=== PATIENT | male | born 1935 | race Caucasian/White ===

== ENCOUNTER 2016-11-28 09:59 | Day surgery (SDC) | payer BC ==
--- NOTE | ~2016-11-28 | EGD ---
EGD REPORT [facility] [place] [address] [id number] NAME: DIOGO OJEDA : [birth year] STATUS : REG [facility]#: [id number] AGE: 81 ADM/REG DATE : 11/28/16 MR#: [id number] REPORT SERV DATE: 11/28/16 DICTATED BY: KARLY MAN DATE: 11/28/16 REPORT STATUS : Draft TRANSCRIBED BY: [facility] DATE: 11/28/16 Endoscopy Center Patient Name: Diogo Ojeda Date of : 1935 Attending MD: KARLY MAN MD Procedure Date No Time: 11/28/2016 Procedure: Colonoscopy Indications: High risk colon cancer surveillance: Personal history of colonic polyps, Last colonoscopy: March 2013 Referring MD: SHAHRAM DAILEY MD Medicines: See the Anesthesia note for documentation of the administered medications Complications: No immediate complications. Procedure: Pre-Anesthesia Assessment: - ASA Grade Assessment: IV - A patient with severe systemic disease that is a constant threat to life. After I obtained informed consent, the scope was passed under direct vision. Throughout the procedure, the patient's blood pressure, pulse, and oxygen saturations were monitored continuously. The CF [id number] was introduced through the anus and advanced to the cecum, identified by appendiceal orifice and ileocecal valve. The colonoscopy was performed without difficulty. The patient tolerated the procedure well. The quality of the bowel preparation was adequate. Findings: The perianal and digital rectal examinations were normal. Diverticula were found in the sigmoid colon. Internal hemorrhoids were found during retroflexion and were large. A sessile polyp was found in the ascending colon. The polyp was small in size. The polyp was removed with a cold biopsy forceps. Resection and retrieval were complete. Impression: - Diverticulosis in the sigmoid colon. - Internal hemorrhoids. - One small polyp in the ascending colon. Resected and retrieved. Recommendation: - Patient has a contact number available for emergencies. The signs and symptoms of potential delayed complications were discussed with the patient. Return to normal activities tomorrow. Written discharge instructions were provided to the patient. - Regular diet. EGD REPORT [address] [address] NAME: DIOGO OJEDA : [birth year] STATUS : REG [facility] [place] PAT#: [id number] AGE: 81 ADM/REG DATE : 11/28/16 MR#: [id number] REPORT SERV DATE: 11/28/16 DICTATED BY: KARLY MAN DATE: 11/28/16 REPORT STATUS : Draft TRANSCRIBED BY: [employer] DATE: 11/28/16 - Continue present medications. - Repeat colonoscopy is not recommended for surveillance. - FOR YOUR BIOPSY RESULTS: Please go to [email or web address] and register to receive your results via the portal. Your biopsy results will be posted there in about 7 to 10 days. IF you do not see result in 10 days, call office. Procedure Code(s): --- Professional --- 84823, Colonoscopy, flexible, proximal to splenic flexure; with biopsy, single or multiple Diagnosis Code(s): --- Professional --- K64.8, Other hemorrhoids K57.30, Diverticulosis of large intestine without perforation or abscess without bleeding D12.2, Benign neoplasm of ascending colon Z86.010, Personal history of colonic polyps CPT copyright 2013 [employer]. All rights reserved. The codes documented in this report are preliminary and upon outpatient coder review may be revised to meet current compliance requirements. Karly Man MD KARLY MAN MD 11/28/2016 12:00 PM This report has been signed electronically. Number of Addenda: 0 Note Initiated On: 11/28/2016 11:41 AM Scope Withdrawal Time 0 hours 7 minutes 8 seconds [id number] [place] [id number]
[~2016-11-28 09:59] MED LIST: ALEVE220 MG PO; AMB10 PO; ASAB PO; ASPIRIN 81 MG B8113 PO; BETA240 PO; BETAPACE160 MG PO; CALCIUM/MAGNESIUM PO; CENTRUM SILVER1 EACH PO; CENTRUM TAB1 TAB PO; CO Q-10200 MG PO; COREG12 PO; DIOVAN HCT PO; DIOVAN320 MG PO; FISH OIL 1,0001 EAC4 PO; FISH-EPA1000 MG PO; FLOMAX4 PO; GLUCCHONDR PO; HYZAAR 50/12.51 TAB PO; HYZAAR1 TAB PO; LOP25 PO; MAGNEBIND200 MG PO; PACERONE200 MG PO; PRAVAC PO; PRILOSEC OTC20 MG PO; PROSCAR 5 MG PO; PROSCAR5 PO; STOOL SOFTEN100 MG PO; VITAMIN D1000 UNI1 PO; VITAMIN D31000 UNIT PO; ZETIA PO; ZOCOR10 PO; ZOCOR20 PO
== END 2016-11-28 23:59 | disposition home or self-care (01) ==
LOC: DMU 09:59
PROVIDERS: Internal Medicine Gastroenterology
PROC: 0DBK8ZZ Excision of Ascending Colon, Via Natural or Artificial Opening Endoscopic (ICD-10-PCS; principal; 2016-11-28 11:30)
DX: Z12.11 Encounter for screening for malignant neoplasm of colon (principal); D12.2 Benign neoplasm of ascending colon; K64.8 Other hemorrhoids; K57.30 Diverticulosis of large intestine without perforation or abscess without bleeding; Z86.010 Personal history of colon polyps; Z95.810 Presence of automatic (implantable) cardiac defibrillator; Z95.1 Presence of aortocoronary bypass graft; I10 Essential (primary) hypertension; M19.90 Unspecified osteoarthritis, unspecified site; K40.90 Unilateral inguinal hernia, without obstruction or gangrene, not specified as recurrent; E78.00 Pure hypercholesterolemia, unspecified; K42.9 Umbilical hernia without obstruction or gangrene; Z87.891 Personal history of nicotine dependence; Z98.42 Cataract extraction status, left eye; Z96.1 Presence of intraocular lens; Z96.643 Presence of artificial hip joint, bilateral; Z96.653 Presence of artificial knee joint, bilateral; Z90.89 Acquired absence of other organs; Z98.890 Other specified postprocedural states; Z79.899 Other long term (current) drug therapy; Z79.82 Long term (current) use of aspirin
CPT/HCPCS: 88305